=== PATIENT | male | born 1965 | race Hispanic/Latino ===

== ENCOUNTER 2020-07-22 19:29 | Emergency (ER) | payer BC ==
[2020-07-22] MEDS ORDERED: IBUPROFEN 200 MG TAB PO ONE (20:40)
[2020-07-22 22:12] LABS: SARS-COV-2 RT PCR POSITIVE (NEGATIVE)
--- NOTE | 2020-07-22 22:17 | EDPHYS ---
Physician Documentation [facility] Name: Lexx Apodaca Age: 54 yrs Sex: Male : 1965 Arrival Date: 07/22/2020 Time: 19:33 Bed 30 Private MD: ED Physician Luis A Fried HPI: 07/22 22:20 This 54 yrs old Male presents to ER via Ambulatory with complaints of Cough, kb Fever, Congestion, CHILLS. 22:20 The patient or guardian reports cough, flu symptoms, low-grade fever, myalgias. Onset: kb The symptoms/episode began/occurred today. Severity of symptoms: At their worst the symptoms were moderate, in the emergency department the symptoms are unchanged. Modifying factors: The symptoms are alleviated by nothing, the symptoms are aggravated by nothing. Associated signs and symptoms: Pertinent positives: fever. The patient has not experienced similar symptoms in the past. The patient has not recently seen a physician. Pt reports cough, congestion, fever, chills, and bodyaches since 1729 today. Historical: - Allergies: 20:18 Lisinopril; iw - PSHx: 20:18 Cholecystectomy; portion of LG intestine removed.; Appendectomy; iw - Immunization history:: Adult Immunizations up to date. - Social history:: Smoking status: Patient reports the use of cigarette tobacco products, smokes one-half pack cigarettes per day. ROS: 22:19 Cardiovascular: Negative for chest pain, palpitations, and edema, Abdomen/GI: Negative kb for abdominal pain, nausea, vomiting, diarrhea, and constipation, Back: Negative for injury and pain, MS/Extremity: Negative for injury and deformity, Skin: Negative for injury, rash, and discoloration, Neuro: Negative for headache, weakness, numbness, tingling, and seizure. 22:19 Constitutional: Positive for body aches, chills, fatigue, fever, malaise. 22:19 ENT: Positive for sinus congestion. Exam: 22:20 Constitutional: This is a well developed, well nourished patient who is awake, alert, kb and in no acute distress. Head/Face: Normocephalic, atraumatic. Chest/axilla: Normal chest wall appearance and motion. Cardiovascular: Regular rate and rhythm with a normal S1 and S2. No gallops, murmurs, or rubs. No pulse deficits. Respiratory: Lungs have equal breath sounds bilaterally, clear to auscultation. No rales, rhonchi or wheezes noted. No increased work of breathing, no retractions or nasal flaring. Abdomen/GI: Soft, non-tender, with normal bowel sounds. No distension. No guarding or rebound. No evidence of tenderness throughout. Skin: Warm, dry with normal turgor. Normal color with no rashes, no lesions, and no evidence of cellulitis. MS/ Extremity: Pulses equal, no cyanosis. Neurovascular intact. Full, normal range of motion. Neuro: Awake and alert, GCS 15, oriented to person, place, time, and situation. Cranial nerves II-XII grossly intact. Moves all extremities. Sensory grossly intact. Cerebellar exam normal. Normal gait. Vital Signs: 20:16 BP 141 / 87; Pulse 118; Resp 18 S; Temp 100.9(O); Pulse Ox 98% ; Weight 93.44 kg; iw Height 6 ft. 1 in. (185.42 cm); 20:16 Body Mass Index 27.18 (93.44 kg, 185.42 cm) iw MDM: 20:21 Patient medically screened. kb 22:20 Data reviewed: vital signs, nurses notes. Data interpreted: Pulse oximetry: on room air kb is 98 %. Interpretation: normal. Counseling: I had a detailed discussion with the patient and/or guardian regarding: the historical points, exam findings, and any diagnostic results supporting the discharge/admit diagnosis, lab results, the need for outpatient follow up, a family practitioner, to return to the emergency department if symptoms worsen or persist or if there are any questions or concerns that arise at home. 07/22 20:20 Order name: Flu 07/22 20:20 Order name: COVID-19 : Document "Date of Symptom Onset" if Symptomatic. 07/22 21:20 Order name: CORONAVIRUS EDWV 07/22 21:21 Order name: Influenza Screen (A EDWV 07/22 22:12 Order name: COVID-19/FLU A+B; Complete Time: 22:16 EDMS Administered Medications: 20:30 Drug: Ibuprofen 600 mg Route: PO; iw 22:15 Follow up: Response: No adverse reaction iw Disposition: 07/23 05:56 Co-signature as Attending Physician, uLis A Fried MD. [email or web address] Disposition: 07/22/20 22:16 Discharged to Home. Impression: Coronavirus infection, unspecified. - Condition is Stable. - Discharge Instructions: Viral Respiratory Infection, [id number], COVID-19. - Medication Reconciliation Form, Thank You Letter, Antibiotic Education, Prescription Opioid Use form. - Follow up: Emergency Department; When: As needed; Reason: Worsening of condition. Follow up: Private Physician; When: 2 - 3 days; Reason: Recheck today's complaints, Continuance of care, Re-evaluation by your physician. Signatures: Dispatcher [employer] EDMS Lynn Nogueira, EMPLOYMENT TRAINER-C EMPLOYMENT TRAINER-CkMary Ann Greenwood RN RN Luis A Pond MD MD [email or web address] Corrections: (The following items were deleted from the chart) 07/22 22:24 22:16 07/22/2020 22:16 Discharged to Home. Impression: Coronavirus infection, iw unspecified. Condition is Stable. Forms are Medication Reconciliation Form, Thank You Letter, Antibiotic Education, Prescription Opioid Use. Follow up: Emergency Department; When: As needed; Reason: Worsening of condition. Follow up: Private Physician; When: 2 - 3 days; Reason: Recheck today's complaints, Continuance of care, Re-evaluation by your physician. kb
--- NOTE | 2020-07-22 22:17 | ER ---
Nurse's Notes [facility] Name: Lexx Apodaca Age: 54 yrs Sex: Male : 1965 Arrival Date: 07/22/2020 Time: 19:33 Bed 30 Private MD: Diagnosis: Coronavirus infection, unspecified Presentation: 07/22 20:16 Chief complaint: Patient states: cough, congestion, fever chills, body aches started iw today at 5:30 pm. Coronavirus screen: chills, congestion, cough unrelated to allergies. Ebola Screen: Patient negative for fever greater than or equal to 101.5 degrees Fahrenheit, and additional compatible Ebola Virus Disease symptoms Patient denies exposure to infectious person. Patient denies travel to an Ebola-affected area in the 21 days before illness onset. No symptoms or risks identified at this time. Initial Sepsis Screen: Does the patient meet any 2 criteria? No. Patient's initial sepsis screen is negative. Does the patient have a suspected source of infection? No. Patient's initial sepsis screen is negative. Risk Assessment: Do you want to hurt yourself or someone else? Patient reports no desire to harm self or others. Onset of symptoms was July 22, 2020. 20:16 Method Of Arrival: Ambulatory iw 20:16 Acuity: JOSE 4 iw Historical: - Allergies: 20:18 Lisinopril; iw - PSHx: 20:18 Cholecystectomy; portion of LG intestine removed.; Appendectomy; iw - Immunization history:: Adult Immunizations up to date. - Social history:: Smoking status: Patient reports the use of cigarette tobacco products, smokes one-half pack cigarettes per day. Screenin:22 Abuse screen: Denies threats or abuse. Nutritional screening: No deficits noted. iw Tuberculosis screening: No symptoms or risk factors identified. Fall Risk None identified. Assessment: 22:15 General: Appears in no apparent distress. comfortable, Behavior is calm, cooperative, iw appropriate for age, Reports chills for 0-12 hours, fever for 0-12 hours, feeling ill for 0-12 hours, body aches. Pain: Denies pain. Neuro: Level of Consciousness is awake, alert, obeys commands, Oriented to person, place, time, situation. Cardiovascular: Capillary refill < 3 seconds Patient's skin is warm and dry. Respiratory: Reports cough that is Airway is patent. EENT: Reports nasal congestion. Derm: Skin is intact, is healthy with good turgor, Skin is pink, warm \T\ dry. Musculoskeletal: Capillary refill < 3 seconds, Range of motion: intact in all extremities. Vital Signs: 20:16 BP 141 / 87; Pulse 118; Resp 18 S; Temp 100.9(O); Pulse Ox 98% ; Weight 93.44 kg; iw Height 6 ft. 1 in. (185.42 cm); 20:16 Body Mass Index 27.18 (93.44 kg, 185.42 cm) iw ED Course: 19:33 Patient arrived in ED. es 20:13 Lynn Nogueira FNP-C [facility]. kb 20:13 Luis A Fried MD is Attending Physician. kb 20:18 Triage completed. iw 20:19 Arm band placed on. iw 20:22 Mary Ann Brown, RN is Primary Nurse. iw 22:22 Patient has correct armband on for positive identification. iw 22:22 No provider procedures requiring assistance completed. Patient did not have IV access iw during this emergency room visit. Administered Medications: 20:30 Drug: Ibuprofen 600 mg Route: PO; iw 22:15 Follow up: Response: No adverse reaction iw Outcome: 22:16 Discharge ordered by MD. kb 22:22 Discharged to home ambulatory. iw 22:22 Condition: stable 22:22 Discharge instructions given to patient, Instructed on discharge instructions, follow up and referral plans. Demonstrated understanding of instructions, follow-up care. 22:24 Patient left the ED. iw Signatures: Lynn Nogueira FNP-C FNP-Tameka Cortés Mary Ann Brown, RN RN iw Corrections: (The following items were deleted from the chart) 20:19 20:16 Pulse 118bpm; Resp 18bpm; Spontaneous; Pulse Ox 98%; 93.44 kg; Height 6 ft. 1 iw in.; BMI: 27.1; iw 20:20 20:16 BP 141 / 87; Pulse 118bpm; Resp 18bpm; Spontaneous; Pulse Ox 98%; 93.44 kg; iw Height 6 ft. 1 in.; BMI: 27.1; iw
[2020-07-22 23:51] VITALS: BP 141/87; TEMP 100.9; O2SAT 98
== END 2020-07-22 22:24 | disposition home or self-care (01) ==
LOC: ER 19:29
DX: U07.1 COVID-19 (principal); F17.210 Nicotine dependence, cigarettes, uncomplicated; Z88.8 Allergy status to other drugs, medicaments and biological substances
CPT/HCPCS: 0240U; 99283

== ENCOUNTER 2020-07-24 10:50 | Emergency (ER) | payer BC ==
--- NOTE | 2020-07-24 12:15 | ER ---
Nurse's Notes [facility] Name: Lexx Apodaca Age: 54 yrs Sex: Male : 1965 Arrival Date: 07/24/2020 Time: 10:53 Bed 5 Private MD: Diagnosis: Nonspecific lymphadenitis;Coronavirus infection, unspecified Presentation: 07/24 11:00 Chief complaint: Patient states: Here Thursday, diagnosed covid +. Throat pain and ll1 swelling feeling for 1 day. + chills again. Diarrhea yesterday. His doctor couldn't see him, so they told him to go to the ED for eval. Coronavirus screen: Client denies travel out of the [place] in the last 14 days. chills, congestion, cough unrelated to allergies, diarrhea, fever, headache, shaking with chills, shortness of breath, sore throat, loss of taste or smell, Client presents with at least one sign or symptom that may indicate coronavirus-19. Standard/surgical mask placed on the client. Ebola Screen: Patient denies travel to an Ebola-affected area in the 21 days before illness onset. Resp Distress? No respiratory distress is noted at this time. Initial Sepsis Screen: Does the patient meet any 2 criteria? No. Patient's initial sepsis screen is negative. Does the patient have a suspected source of infection? Yes: Productive cough/pneumonia. Risk Assessment: Do you want to hurt yourself or someone else? Patient reports no desire to harm self or others. Onset of symptoms was July 22, 2020. 11:00 Method Of Arrival: Ambulatory ll1 11:00 Acuity: JOSE 4 ll1 Historical: - Allergies: 11:03 Lisinopril; ll1 - PMHx: 11:03 Hypertension; Diabetes - NIDDM; ll1 - PSHx: 11:03 Cholecystectomy; portion of LG intestine removed.; Appendectomy; ll1 - Immunization history:: Flu vaccine is up to date. - Social history:: Smoking status: Patient reports the use of cigarette tobacco products, smokes one-half pack cigarettes per day. Screenin:16 Abuse screen: Denies threats or abuse. Denies injuries from another. Nutritional ph screening: No deficits noted. Tuberculosis screening: No symptoms or risk factors identified. Fall Risk None identified. Assessment: 12:17 General: Appears in no apparent distress. comfortable, slender, well groomed, Behavior ph is calm, cooperative, appropriate for age. Pain: Complains of pain in throat. Neuro: Level of Consciousness is awake, alert, obeys commands, Oriented to person, place, time, situation. Cardiovascular: Capillary refill < 3 seconds in bilateral fingers Patient's skin is warm and dry. Respiratory: Reports cough that is Airway is patent Respiratory effort is even, unlabored. GI: No signs and/or symptoms were reported involving the gastrointestinal system. EENT: Reports pain when swallowing. Derm: Skin is intact, is healthy with good turgor, Skin is pink, warm \T\ dry. Musculoskeletal: Circulation, motion, and sensation intact. Range of motion: intact in all extremities. Vital Signs: 11:00 BP 158 / 97; Pulse 73; Resp 17; Temp 98.8; Pulse Ox 98% ; Weight 93.44 kg; Height 6 ft. ll1 1 in. (185.42 cm); Pain 6/10; 12:30 BP 148 / 78; Pulse 68; Resp 18; Temp 98.0; Pulse Ox 98% on R/A; ph 11:00 Body Mass Index 27.18 (93.44 kg, 185.42 cm) ll1 ED Course: 10:53 Patient arrived in ED. mr 11:03 Triage completed. ll1 11:04 Arm band placed on Patient placed in an exam room, on a stretcher. ll1 11:06 Farnaz Meehan, RN is Primary Nurse. ph 11:10 Jose Luis Abdul NP is PHCP. pm1 11:10 Humberto Spaulding MD is Attending Physician. pm1 12:16 Patient has correct armband on for positive identification. Bed in low position. Call ph light in reach. Side rails up X 1. Pulse ox on. NIBP on. Door closed. Noise minimized. 12:18 No provider procedures requiring assistance completed. Patient did not have IV access ph during this emergency room visit. Administered Medications: 12:18 Drug: Tussionex Pennkinetic ER 5 ml Route: PO; ph 12:18 Follow up: Response: No adverse reaction ph Outcome: 12:14 Discharge ordered by . pm1 12:30 Discharged to home ambulatory. ph 12:30 Condition: good 12:30 Discharge instructions given to patient, Instructed on discharge instructions, follow up and referral plans. medication usage, Demonstrated understanding of instructions, follow-up care, medications, Prescriptions given X 2. 12:31 Patient left the ED. ph Signatures: Alondra Melissa Patricia, RN RN ph Jose Luis Abdul, CENTER REP CENTER REP pm1 Korey Felipe RN RN ll1
--- NOTE | 2020-07-24 12:15 | EDPHYS ---
Physician Documentation [facility] Name: Lexx Apodaca Age: 54 yrs Sex: Male : 1965 Arrival Date: 07/24/2020 Time: 10:53 Bed 5 Private MD: ED Physician Humberto Spaulding HPI: 07/24 12:03 This 54 yrs old Male presents to ER via Ambulatory with complaints of COVID+, pm1 Cough, Congestion, Neck Swelling. 12:03 The patient or guardian reports cough, with no sputum, sore throat, neck swelling, one pm1 episode of diarrhea yesterday and chills. Onset: The symptoms/episode began/occurred 1 week(s) ago. Modifying factors: The symptoms are alleviated by nothing, the symptoms are aggravated by nothing. Associated signs and symptoms: Pertinent negatives: chest pain, shortness of breath. The patient has been recently seen at the [facility] Emergency Department, for similar complaints diagnosed with covid . Patient was not able to been seen by his PCP so referred to the ER for evaluation . Historical: - Allergies: 11:03 Lisinopril; ll1 - PMHx: 11:03 Hypertension; Diabetes - NIDDM; ll1 - PSHx: 11:03 Cholecystectomy; portion of LG intestine removed.; Appendectomy; ll1 - Immunization history:: Flu vaccine is up to date. - Social history:: Smoking status: Patient reports the use of cigarette tobacco products, smokes one-half pack cigarettes per day. ROS: 12:03 Eyes: Negative for injury, pain, redness, and discharge. pm1 12:03 Cardiovascular: Negative for chest pain, palpitations, and edema, Respiratory: Negative for shortness of breath, cough, wheezing, and pleuritic chest pain, Back: Negative for injury and pain, MS/Extremity: Negative for injury and deformity, Skin: Negative for injury, rash, and discoloration, Neuro: Negative for headache, weakness, numbness, tingling, and seizure. 12:03 Constitutional: Positive for chills, Negative for poor PO intake. 12:03 ENT: Positive for sore throat, Negative for ear pain, difficulty swallowing, difficulty handling secretions, hoarseness. 12:03 Neck: Positive for swollen nodes, Negative for pain with movement, pain at rest. 12:03 Abdomen/GI: Positive for diarrhea, Negative for abdominal pain, nausea and vomiting. Exam: 12:03 Constitutional: This is a well developed, well nourished patient who is awake, alert, pm1 and in no acute distress. Head/Face: Normocephalic, atraumatic. 12:03 Back: No spinal tenderness. No costovertebral tenderness. Full range of motion. Skin: Warm, dry with normal turgor. Normal color with no rashes, no lesions, and no evidence of cellulitis. MS/ Extremity: Pulses equal, no cyanosis. Neurovascular intact. Full, normal range of motion. 12:03 ENT: External ear(s): are unremarkable, Ear canal(s): are normal, Posterior pharynx: Tonsils: bilaterally enlarged, with erythema, no exudate, no ulcerations, erythema, that is mild, peritonsillar mass, is not appreciated. 12:03 Neck: C-spine: vertebral tenderness, ROM/movement: is normal, is supple, Lymph nodes: lymphadenopathy is appreciated, right anterior cervical. 12:03 Cardiovascular: Exam negative for acute changes, Rate: normal, Rhythm: regular, Pulses: no pulse deficits are appreciated. 12:03 Respiratory: Exam negative for acute changes, respiratory distress, shortness of breath. 12:03 Neuro: Exam negative for acute changes, Orientation: is normal, Mentation: is normal, Motor: is normal, moves all fours. Vital Signs: 11:00 BP 158 / 97; Pulse 73; Resp 17; Temp 98.8; Pulse Ox 98% ; Weight 93.44 kg; Height 6 ft. ll1 1 in. (185.42 cm); Pain 6/10; 12:30 BP 148 / 78; Pulse 68; Resp 18; Temp 98.0; Pulse Ox 98% on R/A; ph 11:00 Body Mass Index 27.18 (93.44 kg, 185.42 cm) ll1 MDM: 11:12 Patient medically screened. pm1 11:30 ED course: Patient without any shortness of breath. Patient smoked cigarettes one hour pm1 prior to arrival. Patient educated on smoking cessation. 12:11 Data reviewed: vital signs. Data interpreted: Pulse oximetry: on room air is 98 %. pm1 Interpretation: normal. 12:11 Counseling: I had a detailed discussion with the patient and/or guardian regarding: the pm1 historical points, exam findings, and any diagnostic results supporting the discharge/admit diagnosis, lab results, the need for outpatient follow up, a family practitioner, to return to the emergency department if symptoms worsen or persist or if there are any questions or concerns that arise at home. 07/24 11:28 Order name: Strep; Complete Time: 12:11 pm1 07/24 12:10 Order name: Throat Culture EDMS Administered Medications: 12:18 Drug: Tussionex Pennkinetic ER 5 ml Route: PO; ph 12:18 Follow up: Response: No adverse reaction ph Disposition: 13:18 Co-signature as Attending Physician, Humberto Spaulding MD. rn Disposition: 07/24/20 12:14 Discharged to Home. Impression: Nonspecific lymphadenitis, Coronavirus infection, unspecified. - Condition is Stable. - Discharge Instructions: Lymphadenopathy, COVID-19. - Prescriptions for Guaifenesin AC 10- 100 mg/5 mL Oral Liquid - take 10 milliliter by ORAL route every 4 hours As needed; 240 milliliter. Zithromax Z- Ori 250 mg Oral Tablet - take 1 tablet by ORAL route as directed for 5 days Day 1 - take two (2) tablets one time. Day 2, 3, 4 , 5 take one (1) tablet once daily.; 6 tablet. - Medication Reconciliation Form, Thank You Letter, Antibiotic Education, Prescription Opioid Use form. - Follow up: Emergency Department; When: As needed; Reason: Worsening of condition. Follow up: Private Physician; When: 2 - 3 days; Reason: Recheck today's complaints, Continuance of care, Re-evaluation by your physician. - Problem is new. - Symptoms have improved. Signatures: Dispatcher [employer] EDMS Humberto Spaulding MD MD rn Hall, Patricia, RN RN ph Jose Luis Abdul, ALDA ANTIQUE FINISHER pm1 Korey Felipe RN RN ll1 Corrections: (The following items were deleted from the chart) 12:31 12:14 07/24/2020 12:14 Discharged to Home. Impression: Nonspecific lymphadenitis; ph Coronavirus infection, unspecified. Condition is Stable. Forms are Medication Reconciliation Form, Thank You Letter, Antibiotic Education, Prescription Opioid Use. Follow up: Emergency Department; When: As needed; Reason: Worsening of condition. Follow up: Private Physician; When: 2 - 3 days; Reason: Recheck today's complaints, Continuance of care, Re-evaluation by your physician. Problem is new. Symptoms have improved. pm1
[2020-07-24] MEDS ORDERED: HYDROCODONE/CHLORPHEN 5 ML/OSYR ONE (12:32)
[2020-07-24 12:37] VITALS: O2SAT 98
[2020-07-24 12:38] VITALS: BP 148/78; TEMP 98
== END 2020-07-24 12:31 | disposition home or self-care (01) ==
LOC: ER 10:50
DX: U07.1 COVID-19 (principal); I88.0 Nonspecific mesenteric lymphadenitis; I10 Essential (primary) hypertension; F17.210 Nicotine dependence, cigarettes, uncomplicated; Z88.8 Allergy status to other drugs, medicaments and biological substances
CPT/HCPCS: 87070; 87081; 99283